=== PATIENT | female | born 1965 | race Caucasian/White ===

== ENCOUNTER 2022-03-29 10:26 | Inpatient (IN) | payer OTHER ==
[~2022-03-29] VITALS: Ht 165.1 cm; Wt 88.0 kg
[2022-03-29] MEDS ORDERED: ZOCOR40 MG PO (14:15)
[2022-03-29] MEDS ORDERED: INSULIN SYRING1 EA29 SUBCUTANEO (14:15)
[2022-03-29] MEDS ORDERED: SINGULAIR10 MG PO (14:16)
[2022-03-29] MEDS ORDERED: BREO ELLIPTA I1 EACH IH (14:16)
[2022-03-29] MEDS ORDERED: LOSARTAN POTASS50 MG PO (14:16)
[2022-03-29] MEDS ORDERED: ALLERGY RELIE15.8 ML NASAL (14:17)
[2022-03-29] MEDS ORDERED: SPIRIVA RESPIMAT4 GM IH (14:17)
[2022-03-31] MEDS ORDERED: HUMULIN R500 UNIT/2 (15:27)
[2022-04-07] MEDS ORDERED: QUESTRAN LIGHT210 GM PO (09:09)
[2022-04-07] MEDS ORDERED: INTESTINEX680 M1 PO (09:10)
[2022-04-07] MEDS ORDERED: ULTRACET PO (09:10)
[2022-04-07] MEDS ORDERED: DICLOFENAC SODI75 MG PO (09:10)
[2022-04-07] MEDS ORDERED: METRONIDAZOLE500 MG PO (09:11)
[2022-04-07] MEDS ORDERED: VANCOMYCIN HCL125 MG PO (09:12)
== END 2022-04-07 10:02 | disposition home or self-care (01) | DRG 330 ==
LOC: SURH 03-31 07:00 → O/R 03-31 07:29 → SURH 03-31 11:00
PROVIDERS: ADMIT Surgery; ATTEND Surgery
PROC: 07BC4ZZ Excision of Pelvis Lymphatic, Percutaneous Endoscopic Approach (ICD-10-PCS; 2022-03-31)
PROC: 4A12X4Z Monitoring of Cardiac Electrical Activity, External Approach (ICD-10-PCS; 2022-03-31)
PROC: 3E0F7SF Introduction of Other Gas into Respiratory Tract, Via Natural or Artificial Opening (ICD-10-PCS; 2022-03-31)
PROC: 3E0F7GC Introduction of Other Therapeutic Substance into Respiratory Tract, Via Natural or Artificial Opening (ICD-10-PCS; 2022-03-31)
PROC: 0DTF4ZZ Resection of Right Large Intestine, Percutaneous Endoscopic Approach (ICD-10-PCS; principal; 2022-03-31 07:00)
PROC: 8E0ZXY6 Isolation (ICD-10-PCS; 2022-04-03)
PROC: BW21YZZ Computerized Tomography (CT Scan) of Abdomen and Pelvis using Other Contrast (ICD-10-PCS; 2022-04-04)
DX: D12.0 Benign neoplasm of cecum (principal); A04.72 Enterocolitis due to Clostridium difficile, not specified as recurrent; A04.4 Other intestinal Escherichia coli infections; R59.0 Localized enlarged lymph nodes; I11.0 Hypertensive heart disease with heart failure; I50.9 Heart failure, unspecified; R19.4 Change in bowel habit; J44.9 Chronic obstructive pulmonary disease, unspecified; J45.998 Other asthma; E11.65 Type 2 diabetes mellitus with hyperglycemia; G47.33 Obstructive sleep apnea (adult) (pediatric); Z79.4 Long term (current) use of insulin